=== PATIENT | male | born 1975 | race Caucasian/White ===

== ENCOUNTER 2019-09-10 07:16 | Emergency (ER) | payer OTHER ==
[~2019-09-10] VITALS: Ht 180.3 cm; Wt 158.5 kg
[2019-09-10 07:17] VITALS: BP 113/68
--- NOTE | 2019-09-10 07:27 | NUR ---
PATIENT AMBULATED TO BED 8.
[2019-09-10] MEDS ORDERED: PROMETHAZINE 25 MG/ML VIAL IM ONE (07:35)
[2019-09-10] MEDS ORDERED: ALBUTEROL SULFATE/IPRATROPIU 3 ML SOL IH ONE (07:35)
[2019-09-10] MEDS ORDERED: KETOROLAC 60 MG/2 ML VIAL IM ONE (07:35)
[2019-09-10] MEDS ORDERED: hydrOXYzine HCL 25 MG TAB PO ONE (07:35)
--- NOTE | 2019-09-10 07:37 | NUR ---
43 yo male came to ER c/o productive cough, colds and body aches for 4 days. Patient states pressure-like pain on both legs and lower back, 710. OTC meds taken, which provided mild relief. Clear breath sounds, with unlabored and regular breathing. VSS. ER MD made aware of patient status.
--- NOTE | 2019-09-10 08:32 | NUR ---
Patient discharged with v/s stable. Written and verbal after care instructions given and explained. Patient alert, oriented and verbalized understanding of instructions. Ambulatory with steady gait. All questions addressed prior to discharge. ID band removed. Patient advised to follow up with PMD. Rx of MOTRIN, AZITHROMYCIN, PROMETHAZINE given. Patient educated on indication of medication including possible reaction and side effects. Opportunity to ask questions provided and answered.
[2019-09-10 08:33] VITALS: BP 113/68
== END 2019-09-10 08:32 | disposition home or self-care (01) ==
LOC: MED 07:16
DX: J06.9 Acute upper respiratory infection, unspecified (principal); J11.1 Influenza due to unidentified influenza virus with other respiratory manifestations
CPT/HCPCS: 87804; 94640; 96372; 99283; J1885; J2550; J7620

== ENCOUNTER 2021-12-30 13:57 | Emergency (ER) | payer OTHER ==
[~2021-12-30] VITALS: Ht 180.3 cm; Wt 161.0 kg
[2021-12-30 14:09] VITALS: BP 128/83
[2021-12-30] MEDS ORDERED: FLUORESCEIN OPTH STRIP 1 MG OP ONE (14:20)
[2021-12-30] MEDS ORDERED: TETRACAINE HCL/PF 0.5% OPTH 4 ML BTL OP ONE (14:20)
--- NOTE | 2021-12-30 14:27 | NUR ---
JO-ANN MARCUM EVALUATING PT AT THIS TIME, PT AMBULATED TO ER BED 7
[2021-12-30] MEDS ORDERED: PROP15DR OP (14:47)
--- NOTE | 2021-12-30 15:11 | NUR ---
46 Y/O MALE BIB SELF WITH C/O LEFT EYE PAIN. 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 DENIES VISION CHANGES. MEDHX: DENIES ALLERGIES: ALIZA
--- NOTE | 2021-12-30 15:31 | NUR ---
Patient discharged with v/s stable. Written and verbal after care instructions ABOUT EYE FOREIGN BODY given and explained. Patient alert, oriented and verbalized understanding of instructions. Ambulatory with steady gait. All questions addressed prior to discharge. ID band removed. Patient advised to follow up with PMD. Rx of SYSTANE 0.3-0.4% EYE DROPS given. Patient educated on indication of medication including possible reaction and side effects. Opportunity to ask questions provided and answered.
== END 2021-12-30 15:31 | disposition home or self-care (01) ==
LOC: MED 13:57
DX: H57.12 Ocular pain, left eye (principal); Z79.899 Other long term (current) drug therapy
CPT/HCPCS: 99283

== ENCOUNTER 2022-08-30 15:01 | Emergency (ER) | payer OTHER ==
[~2022-08-30] VITALS: Ht 180.3 cm; Wt 164.2 kg
[~2022-08-30 15:01] MED LIST: PROP15DR OP
[2022-08-30 15:13] VITALS: BP 167/84
--- NOTE | 2022-08-30 15:30 | NUR ---
46 y/o male bib self, c/o sore throat, gen weakness, cough, subjective fever since yesterday. 04/27 body aches.
[2022-08-30] MEDS ORDERED: PROM118S5 PO (16:01)
[2022-08-30] MEDS ORDERED: LIDO100S PO (16:01)
[2022-08-30] MEDS ORDERED: IBUP-2213 PO (16:01)
[2022-08-30 16:08] VITALS: BP 166/80
--- NOTE | 2022-08-30 16:12 | NUR ---
Patient discharged with v/s stable. Written and verbal after care instructions given and explained. Patient alert, oriented and verbalized understanding of instructions. Ambulatory with steady gait. All questions addressed prior to discharge. ID band removed. Patient advised to follow up with PMD. Rx of IBU,LIDOCAINE,PROMETHAZINE-DM given. Patient educated on indication of medication including possible reaction and side effects. Opportunity to ask questions provided and answered.
== END 2022-08-30 16:08 | disposition home or self-care (01) ==
LOC: MED 15:01
DX: U07.1 COVID-19 (principal); J10.1 Influenza due to other identified influenza virus with other respiratory manifestations; Z79.899 Other long term (current) drug therapy
CPT/HCPCS: 99283

== ENCOUNTER 2022-12-03 13:35 | Emergency (ER) | payer OTHER ==
[~2022-12-03] VITALS: Ht 180.3 cm; Wt 165.1 kg
[~2022-12-03 13:35] MED LIST changes: +IBUP-2213 PO; +LIDO100S PO; +PROM118S5 PO
[2022-12-03 13:42] VITALS: BP 167/82
[2022-12-03] MEDS ORDERED: KETOROLAC 60 MG/2 ML VIAL IM ONE (14:00)
[2022-12-03] MEDS ORDERED: NAPR-54 PO (14:12)
[2022-12-03] MEDS ORDERED: LID5T TP (14:12)
[2022-12-03 14:37] VITALS: BP 137/82
--- NOTE | 2022-12-03 14:37 | NUR ---
Patient discharged with v/s stable. Written and verbal after care instructions given and explained. Patient alert, oriented and verbalized understanding of instructions. Ambulatory with father to car. All questions addressed prior to discharge. ID band removed. Patient advised to follow up with PMD. Rx of lidocaine, naproxen (sent) given. Patient educated on indication of medication including possible reaction and side effects. Opportunity to ask questions provided and answered.
== END 2022-12-03 14:37 | disposition home or self-care (01) ==
LOC: MED 13:35
DX: M54.16 Radiculopathy, lumbar region (principal); Z79.899 Other long term (current) drug therapy
CPT/HCPCS: 96372; 99283; J1885

== ENCOUNTER 2024-01-10 22:08 | Emergency (ER) | payer OTHER ==
[~2024-01-10] VITALS: Ht 180.3 cm; Wt 158.8 kg
[~2024-01-10 22:08] MED LIST changes: +LID5T TP; +NAPR-337 PO
[2024-01-10 22:15] VITALS: BP 126/74; PULSE 93; RESP 19; TEMP 98; O2SAT 95
[2024-01-10] MEDS: KETOROLAC 60 MG/2 ML VIAL IM ONE (23:57)
[2024-01-10] MEDS: MORPHINE SULFATE 4 MG/ML SYR IM ONE (23:57)
[2024-01-11] MEDS ORDERED: NAPR-337 PO (00:14)
[2024-01-11] MEDS ORDERED: ELIMC TP (00:14)
[2024-01-11 00:16] VITALS: BP 128/74; PULSE 60; RESP 18; TEMP 98.1; O2SAT 96
== END 2024-01-11 00:16 | disposition left against medical advice (07) ==
LOC: MED 22:08
DX: S93.491A Sprain of other ligament of right ankle, initial encounter (principal); Z79.899 Other long term (current) drug therapy; X58.XXXA Exposure to other specified factors, initial encounter; Y93.89 Activity, other specified; Y92.89 Other specified places as the place of occurrence of the external cause; Y99.8 Other external cause status
CPT/HCPCS: 96372; 99284; J1885; J2270

== ENCOUNTER 2024-03-11 15:46 | Emergency (ER) | payer OTHER ==
[~2024-03-11] VITALS: Ht 180.3 cm; Wt 158.8 kg
[~2024-03-11 15:46] MED LIST changes: +ELIMC TP
[2024-03-11 16:18] VITALS: BP 161/87; PULSE 64; RESP 24; TEMP 96.9; O2SAT 99
[2024-03-11] MEDS: KETOROLAC 30 MG/ML VIAL IVP ONE (17:18)
[2024-03-11 17:23] LABS: BASOPHILS % (AUTO) 0.2 % (0.0-2.0); EOSINOPHILS # (AUTO) 0.4 K/uL (0-0.4); EOSINOPHILS % (AUTO) 2.6 % (0.0-4.0); HEMATOCRIT 41.9 % (36-52); HEMOGLOBIN 13.9 g/dL (12.0-18.0); LYMPHOCYTES # (AUTO) 3.2 K/uL (2.0-11.5); LYMPHOCYTES % (AUTO) 23.2 % (20.5-51.1); MEAN CORPUSCULAR HEMOGLOBIN 28 pg (27-31); MEAN CORPUSCULAR HGB CONC 33 g/dL (33-37); MEAN CORPUSCULAR VOLUME 85.2 fL (80-94); MONOCYTES % (AUTO) 7.2 % (1.7-9.3); NEUTROPHILS # (AUTO) 9.2 K/uL (1.8-7.7); NEUTROPHILS % (AUTO) 66.8 % (42.2-75.2); PLATELET COUNT (AUTO) 280 K/uL (140-450); RED BLOOD CELL COUNT(AUTO) 4.92 MIL/uL (4.20-6.10); RED CELL DISTRIBUTION WIDTH 13.8 % (11.6-13.7); WHITE BLOOD COUNT (AUTO) 13.8 K/uL (4.8-10.8)
[2024-03-11 17:43] LABS: ALBUMIN 3.1 g/dL (3.4-5.0); ANION GAP 11.4 (8-16); CALCIUM 7.6 mg/dL (8.5-10.1); CARBON DIOXIDE 27.1 mmol/L (21-32); POTASSIUM 3.5 mmol/L (3.5-5.1); TOTAL BILIRUBIN 0.3 mg/dL (0.0-1.0)
[2024-03-11 19:13] LABS: APPEARANCE,URINE CLEAR (CLEAR); BILIRUBIN,URINE NEGATIVE (NEGATIVE); BLOOD, URINE NEGATIVE (NEGATIVE); COLOR,URINE YELLOW (YELLOW); LEUKOCYTE ESTERASE ,URINE NEGATIVE (NEGATIVE); NITRITE, URINE NEGATIVE (NEGATIVE); PH,URINE 6.5 (5.0-9.0); PROTEIN,URINE NEGATIVE (NEGATIVE); UGLUCOSE NEGATIVE (NEGATIVE); UROBILINOGEN,URINE 0.2 EU/dL (0.2 - 1)
[2024-03-11] MEDS: MORPHINE SULFATE 4 MG/ML SYR IVP ONE (21:10)
[2024-03-11] MEDS ORDERED: IBUP-2213 PO (21:12)
[2024-03-11] MEDS ORDERED: ACET-10509 PO (21:12)
[2024-03-11 21:28] VITALS: BP 125/60; PULSE 77; RESP 16; TEMP 96.9; O2SAT 97
== END 2024-03-11 21:12 | disposition home or self-care (01) ==
LOC: MED 15:46
DX: R10.32 Left lower quadrant pain (principal); Z79.1 Long term (current) use of non-steroidal anti-inflammatories (NSAID); Z79.899 Other long term (current) drug therapy
CPT/HCPCS: 36415; 74177; 80053; 81003; 83690; 85025; 96374; 99285; J1885; Q9967